=== PATIENT | female | born 2000 | race Caucasian/White ===

== ENCOUNTER 2018-12-14 11:24 | Emergency (ER) | payer OTHER ==
[~2018-12-14] VITALS: Ht 165.1 cm; Wt 95.7 kg
[2018-12-14 11:28] VITALS: BP 124/82
[2018-12-14 11:30] VITALS: BP 124/82
--- NOTE | 2018-12-14 11:30 | NUR ---
TO LOBBY A/W BED, AMBULATORY, VSS ERMD NOTED
--- NOTE | 2018-12-14 13:45 | NUR ---
PATIENT CALLED FOR BED , NO RESPONSE. PATIENT LEFT WITHOUT BEING SEEN BY DR. THURMAN. NO FURTHER CARE PROVIDED FOR PATIENT.
--- NOTE | 2018-12-14 13:50 | NUR ---
CALLED FOR THE SECOND TIME NO RESPONSE
--- NOTE | 2018-12-14 13:55 | NUR ---
CALLED FOR THE THIRD TIME NO RESPONSE
== END 2018-12-14 13:45 | disposition left against medical advice (07) ==
LOC: MED 11:24
DX: R53.1 Weakness (principal); R50.9 Fever, unspecified; R11.10 Vomiting, unspecified; Z53.21 Procedure and treatment not carried out due to patient leaving prior to being seen by health care provider